=== PATIENT | female | born 1980 | race Caucasian/White ===

== ENCOUNTER 2018-06-18 16:05 | Emergency (ER) | payer BC ==
[~2018-06-18] VITALS: Ht 172.7 cm; Wt 131.8 kg
[2018-06-18 16:33] VITALS: Ht 172.7 cm; Wt 131.8 kg
[2018-06-18] MEDS ORDERED: KEFLEX500 MG PO (17:19)
[2018-06-18] MEDS ORDERED: EC-NAPROSYN500 MG PO (19:00)
[2018-06-18 19:59] VITALS: BP 132/85
== END 2018-06-18 20:02 | disposition home or self-care (01) ==
LOC: D.ER 16:05
DX: S01.81XA Laceration without foreign body of other part of head, initial encounter (principal); W18.30XA Fall on same level, unspecified, initial encounter; Y93.89 Activity, other specified; Y92.531 Health care provider office as the place of occurrence of the external cause; S80.01XA Contusion of right knee, initial encounter; M25.461 Effusion, right knee; K21.9 Gastro-esophageal reflux disease without esophagitis; K50.90 Crohn's disease, unspecified, without complications; K58.9 Irritable bowel syndrome, unspecified; E28.2 Polycystic ovarian syndrome

== ENCOUNTER 2018-08-02 11:28 | Inpatient (IN) | payer BC ==
[~2018-08-02] VITALS: Ht 172.7 cm; Wt 136.4 kg
--- NOTE | ~2018-08-02 | MORECARE ---
CASE MANAGEMENT DISCHARGE SUMMARY PATIENT: WILFREDO JARA UNIT: [id number] ADM DATE: 08/02/18 AGE: 37 : [birth year] SEX: F ROOM/BED: D.2770 AUTHOR: EZE ESTRELLA PHYSICIAN: REFERRING PHYSICIAN: PEDRO LUIS KAISER DO DATE OF SERVICE: 08/03/18 Discharge Plan Patient Name: WILFREDO JARA Facility: [facility]:[place] : 1980 Planned Disposition: Home Anticipated Discharge Date: 08/03/18 Discharge Date: Expected LOS: 1 Initial Reviewer: [email or web address] Initial Review Date: 08/03/2018 Generated: 08/03/18 11:07 am Comments DCP- Discharge Planning Updated by [email or web address]: Pablo Trejo on 08/03/18 9:[address] Patient Name: WILFREDO JARA Admission Status: ER Accout number: [id number] Admission Date: 08-02-2018 : 1980 Admission Diagnosis: Attending: Pedro Luis Kaiser Current LOS: 1 Anticipated DC Date: 08-03-2018 Planned Disposition: Home Primary Insurance: [email or web address] [facility] Discharge Planning Comments: CM MET WITH PT IN ROOM TO DISCUSS DISCHARGE PLANNING AND NEEDS. PT REPORTS LIVING AT HOME INDEPENDENTLY WITH HER SPOUSE AND EXTENDED FAMILY. PT HAS CANE AND NEBULIZER WITH NO MEDICAL EQUIPMENT PROVIDER PREFERENCE. PT HAS NO OUTSIDE SERVICES ASSISTING IN THE HOME. CM DISCUSSED AVAILABILITY OF HOME HEALTH, REHAB SERVICES AND MEDICAL EQUIPMENT. PT DENIES DISCHARGE NEEDS, REPORTS HER SPOUSE WILL PICK HER UP FOR DISCHARGE HOME. CUSTOM VAN CONVERTER NURSE NOTIFIED. Mental Health Case Manager: Pablo Trejo DCPIA - Discharge Planning Initial Assessment Updated by [email or web address]: Pablo Trejo on 08/03/18 10:04 am * Is the patient Alert and Oriented? Yes * How many steps to enter\exit or inside your home? * PCP DR. KAISER * Pharmacy [facility]. * Preadmission Environment Home with Family * ADLs Independent * Equipment Cane Nebulizer * Other Equipment NO MEDICAL EQUIPMENT PROVIDER PREFERENCE * List name and contact numbers for known caregivers / representatives who currently or will assist patient after discharge: PEGGY ESPINOON, MOTHER IN LAW, KATHARINA JARA, SPOUSE, * Verbal permission to speak to the caregivers and representatives has been obtained from the patient. Yes * Community resources currently utilized None * Please name any agencies selected above. NONE * Additional services required to return to the preadmission environment? No * Can the patient safely return to the preadmission environment? Yes * Has this patient been hospitalized within the prior 30 days at any hospital? No Last DP export: 08/03/18 8:59 Patient Name: WILFREDO JARA Page [id number] at 1007 All edits/amendments must be made on the electronic document DICTATION DATE: 08/03/18 1007 CENTER CUSTOMER SERVICE ASSOCIATE: QUEENIE 08/03/18 [facility] RPT#: [id number] DC DATE: STATUS: ADM IN [facility] [address] [place] [address] END OF REPORT
--- NOTE | ~2018-08-02 | MORECARE ---
CASE MANAGEMENT DISCHARGE SUMMARY PATIENT: WILFREDO JARA UNIT: [id number] ADM DATE: 08/02/18 AGE: 37 : 82 SEX: F ROOM/BED: D.2135 AUTHOR: EZE ESTRELLA PHYSICIAN: REFERRING PHYSICIAN: PEDRO LUIS KAISER DO DATE OF SERVICE: 08/03/18 Discharge Plan Patient Name: WILFREDO JARA Facility: [facility]:[place] : 1980 Planned Disposition: Home Anticipated Discharge Date: 08/03/18 Discharge Date: Expected LOS: 1 Initial Reviewer: [email or web address] Initial Review Date: 08/03/2018 Generated: 08/03/18 10:59 am Patient Name: WILFREDO JARA Page [id number] at 0959 All edits/amendments must be made on the electronic document DICTATION DATE: 08/03/18958 RUBBER PRESS OPERATOR: QUEENIE 08/03/18958 RPT#: [id number] DC DATE: STATUS: ADM IN [facility] [address] [place] [address] END OF REPORT
[~2018-08-02 11:28] MED LIST: EC-NAPROSYN500 MG PO; KEFLEX500 MG PO
[2018-08-02 12:16] LABS: HEMATOCRIT 35.9 % (36.0-48.0); HEMOGLOBIN 12.3 g/dL (12-16); LYMPHOCYTES 19.9 % (15-50); MCH 28.2 pg (26.0-34.0); MCHC 34.3 g/dL (31.0-37.0); MCV 82.3 fL (80.0-100.0); MEAN PLATELET VOLUME 9.8 fL (7.4-10.4); NEUTROPHILS 71.5 % (40-80); PLATELET COUNT 279 10x3/uL (130-400); RBC 4.36 10x6/uL (4.00-5.40); RDW 13.1 % (11.5-14.5); WBC 7.3 10x3/uL (4.8-10.8)
[2018-08-02 12:25] LABS: ALBUMIN 3.5 g/dL (3.4-5.0); ALKALINE PHOSPHATASE 95 U/L (46-116); ALT (SGPT) 15 U/L (10-68); AMYLASE - SERUM 24 U/L (25-115); BILIRUBIN - TOTAL 0.31 mg/dL (0.2-1.3); CALC OSMOLALITY 271 mosm/kg (275-300); CALCIUM 9.2 mg/dL (8.5-10.1); CARBON DIOXIDE 27.6 mmol/L (21.0-32.0); CHLORIDE - SERUM 102 mmol/L (98-107); CREATININE - SERUM 0.7 mg/dL (0.6-1.3); GLUCOSE 85 mg/dL (74-106); LIPASE 87 U/L (73-393); PROTEIN - SERUM 7.8 g/dL (6.4-8.2); SODIUM 137 mmol/L (136-145); UREA NITROGEN 10 mg/dL (7-18); eGFR NON AFRICAN AMERICAN > 90 mL/min (90-120)
[2018-08-02 13:42] LABS: APPEARANCE CLEAR (CLEAR); COLOR YELLOW (YELLOW)
[2018-08-02 13:43] LABS: BACTERIA MODERATE /hpf (NONE SEEN); BILIRUBIN NEGATIVE (NEGATIVE); EPITHELIAL CELLS 0-5 /hpf (0-5); GLUCOSE NEGATIVE (NEGATIVE); KETONE NEGATIVE (NEGATIVE); NITRITE NEGATIVE (NEGATIVE); PROTEIN NEGATIVE (NEGATIVE); UROBILINOGEN NORMAL (NORMAL)
[2018-08-02 13:45] LABS: MUCUS <1+ /lpf (NONE SEEN)
[2018-08-02 14:00] VITALS: BP 144/73
[2018-08-02 16:00] VITALS: BP 142/76
[2018-08-02 19:00] VITALS: BP 143/86
[2018-08-03 00:45] VITALS: BP 140/84
[2018-08-03 04:45] LABS: BASOPHILS 0.4 % (0-2); HEMATOCRIT 34.1 % (36.0-48.0); HEMOGLOBIN 11.3 g/dL (12-16); IMMATURE GRANULOCYTES 0.2 % (0-5); LYMPHOCYTES 22.9 % (15-50); MCH 27.8 pg (26.0-34.0); MCHC 33.1 g/dL (31.0-37.0); NEUTROPHILS 60.5 % (40-80); PLATELET COUNT 254 10x3/uL (130-400); RBC 4.06 10x6/uL (4.00-5.40); RDW 13.5 % (11.5-14.5); WBC 5.7 10x3/uL (4.8-10.8)
[2018-08-03 04:57] VITALS: BP 121/55
[2018-08-03 05:56] LABS: ALBUMIN 2.9 g/dL (3.4-5.0); ALKALINE PHOSPHATASE 85 U/L (46-116); ALT (SGPT) 17 U/L (10-68); BILIRUBIN - TOTAL 0.53 mg/dL (0.2-1.3); CALC OSMOLALITY 273 mosm/kg (275-300); CALCIUM 8.5 mg/dL (8.5-10.1); CARBON DIOXIDE 26.8 mmol/L (21.0-32.0); CHLORIDE - SERUM 104 mmol/L (98-107); CREATININE - SERUM 0.7 mg/dL (0.6-1.3); GLUCOSE 93 mg/dL (74-106); POTASSIUM - SERUM 3.9 mmol/L (3.5-5.1); PROTEIN - SERUM 6.8 g/dL (6.4-8.2); SODIUM 138 mmol/L (136-145); UREA NITROGEN 8 mg/dL (7-18); eGFR NON AFRICAN AMERICAN > 90 mL/min (90-120)
[2018-08-03] MEDS ORDERED: LEVAQUIN750 MG PO (07:02)
[2018-08-03] MEDS ORDERED: DILAUDID4 MG PO (07:02)
[2018-08-03] MEDS ORDERED: FLORAJEN3 CAPS460 MG PO (07:02)
[2018-08-03] MEDS ORDERED: FLAGYL500 MG PO (07:02)
[2018-08-03 08:40] VITALS: BP 137/82
[2018-08-03 09:29] VITALS: Ht 172.7 cm; Wt 136.4 kg
== END 2018-08-03 12:35 | disposition home or self-care (01) | DRG 392 ==
LOC: D.ER 11:28 → D.EDHOLD 17:16 → D.M2 17:16
PROVIDERS: Family Medicine
DX: K57.92 Diverticulitis of intestine, part unspecified, without perforation or abscess without bleeding (principal); N39.0 Urinary tract infection, site not specified; K50.90 Crohn's disease, unspecified, without complications; K21.9 Gastro-esophageal reflux disease without esophagitis

== ENCOUNTER 2018-11-12 15:51 | Inpatient (IN) | payer BC ==
[~2018-11-12] VITALS: Ht 172.7 cm; Wt 106.6 kg
[~2018-11-12 15:51] MED LIST changes: +DILAUDID4 MG PO; +FLAGYL500 MG PO; +FLORAJEN3 CAPS460 MG PO; +LEVAQUIN750 MG PO
--- NOTE | 2018-11-12 16:13 | NUR ---
RECEIVED TO ROOM VIA WHEELCHAIR AND WEARING A SURGICAL MASK.
[2018-11-12] MEDS ORDERED: SINGULAIR10 MG PO (16:25)
[2018-11-12 16:26] VITALS: BP 187/106; Ht 172.7 cm; Wt 106.6 kg
[2018-11-12] MEDS ORDERED: OMEPRAZOLE40 MG PO (16:26)
--- NOTE | 2018-11-12 16:45 | NUR ---
ATTEMPTED 22 GUAGE PIV WITHOUT SUCCESS TO L.FA. DISCUSSED WITH PRIMARY NURSE WILL HAVE SOMEONE ELSE TRY.
[2018-11-12 16:54] LABS: BASOPHILS 0.5 % (0-2); EOSINOPHILS 1.7 % (0-7); HEMATOCRIT 37.1 % (36.0-48.0); HEMOGLOBIN 12.3 g/dL (12-16); LYMPHOCYTES 18.3 % (15-50); MCH 27.5 pg (26.0-34.0); MCHC 33.2 g/dL (31.0-37.0); MCV 82.8 fL (80.0-100.0); MEAN PLATELET VOLUME 9.6 fL (7.4-10.4); MONOCYTES 9.4 % (2-11); NEUTROPHILS 70.1 % (40-80); PLATELET COUNT 270 10x3/uL (130-400); RBC 4.48 10x6/uL (4.00-5.40); RDW 13.9 % (11.5-14.5); WBC 5.9 10x3/uL (4.8-10.8)
--- NOTE | 2018-11-12 17:00 | NUR ---
URINE SENT TO LAB ORDERED. PATIENT IS ON HER MENSES AND WEARS A PAD SO THERE IS BLOOD IN URINE SAMPLE.
--- NOTE | 2018-11-12 17:05 | NUR ---
IV SITED TO RIGHT INNER FA X 3 STICKS. THERE IS A 22G.
[2018-11-12 17:21] LABS: ALBUMIN 3.3 g/dL (3.4-5.0); ALKALINE PHOSPHATASE 100 U/L (46-116); ALT (SGPT) 15 U/L (10-68); BILIRUBIN - TOTAL 0.28 mg/dL (0.2-1.3); CALC OSMOLALITY 279 mosm/kg (275-300); CALCIUM 8.2 mg/dL (8.5-10.1); CARBON DIOXIDE 27.6 mmol/L (21.0-32.0); CHLORIDE - SERUM 104 mmol/L (98-107); CREATININE - SERUM 0.7 mg/dL (0.6-1.3); GLUCOSE 92 mg/dL (74-106); POTASSIUM - SERUM 3.7 mmol/L (3.5-5.1); PROTEIN - SERUM 6.9 g/dL (6.4-8.2); SODIUM 141 mmol/L (136-145); UREA NITROGEN 9 mg/dL (7-18); eGFR NON AFRICAN AMERICAN > 90 mL/min (90-120)
[2018-11-12 18:38] LABS: APPEARANCE HAZY (CLEAR); BILIRUBIN NEGATIVE (NEGATIVE); COLOR YELLOW (YELLOW); GLUCOSE NEGATIVE (NEGATIVE); KETONE NEGATIVE (NEGATIVE); NITRITE NEGATIVE (NEGATIVE); PROTEIN NEGATIVE (NEGATIVE); UROBILINOGEN NORMAL (NORMAL)
[2018-11-12 18:48] LABS: RED CELLS - URINE 25-50 /hpf (0-5); WHITE CELLS - URINE OCC /hpf (0-5)
--- NOTE | 2018-11-12 19:20 | NUR ---
AWAKE AND ALERT IN BED DENEIES NEEDS AT THIS TIME BED IS LOW AND CALL LIGHT IS IN REACH. AUDIABLE WHEEZES HEARD. LUNGS ARE DEMINISHED WITH EPIROTORY WHEEZE. SKIN IS WARM AND DRYIV TO RT ARM IS RUNNING AT NS AT 75 NO REDNESS OR EDEMA NOTED
[2018-11-12 20:00] VITALS: BP 130/75
[2018-11-12 23:00] VITALS: BP 122/76
[2018-11-13] VITALS (7 sets, daily range): BP systolic 108–170; BP diastolic 65–78
--- NOTE | 2018-11-13 02:00 | NUR ---
PT COMPLAINT OF HEADACHE AND STATES SHE IS NOT ALLERGIC TO TYLENOL HARPREET CASON
--- NOTE | 2018-11-13 02:16 | NUR ---
I have reviewed this patient and I concur with the Shift Assessment completed by the Licensed Practical Nurse today this shift.
[2018-11-13 05:39] LABS: BASOPHILS 0 % (0-2); EOSINOPHILS 0 % (0-7); HEMATOCRIT 37.9 % (36.0-48.0); HEMOGLOBIN 12.7 g/dL (12-16); IMMATURE GRANULOCYTES 0.2 % (0-5); LYMPHOCYTES 9.4 % (15-50); MCH 27.5 pg (26.0-34.0); MCHC 33.5 g/dL (31.0-37.0); MCV 82.2 fL (80.0-100.0); MEAN PLATELET VOLUME 9.5 fL (7.4-10.4); MONOCYTES 1.3 % (2-11); NEUTROPHILS 89.1 % (40-80); PLATELET COUNT 292 10x3/uL (130-400); RBC 4.61 10x6/uL (4.00-5.40); RDW 13.9 % (11.5-14.5); WBC 5.5 10x3/uL (4.8-10.8)
[2018-11-13 05:56] LABS: CALC OSMOLALITY 278 mosm/kg (275-300); CALCIUM 8.9 mg/dL (8.5-10.1); CARBON DIOXIDE 24.4 mmol/L (21.0-32.0); CHLORIDE - SERUM 105 mmol/L (98-107); CREATININE - SERUM 0.7 mg/dL (0.6-1.3); POTASSIUM - SERUM 4.1 mmol/L (3.5-5.1); SODIUM 140 mmol/L (136-145); UREA NITROGEN 8 mg/dL (7-18); eGFR NON AFRICAN AMERICAN > 90 mL/min (90-120)
[2018-11-13 06:05] LABS: GLUCOSE 141 mg/dL (74-106)
--- NOTE | 2018-11-13 17:08 | NUR ---
DECLINED SCDS. STATES SHE WILL GET UP AND WALK MORE.
--- NOTE | 2018-11-13 18:05 | NUR ---
AGREE WITH DYE WORKER ASSESSMENT
--- NOTE | 2018-11-13 19:54 | NUR ---
EVENING ROUNDS COMPLETED. REPORT RECEIVED. PT SITTING UP IN BED WITH EYES OPEN, RECEIVING BREATHING TREATMENT. NO S/S OF DISTRESS NOTED. BED IN LOW POSITION. NO S/S OF DISTRESS NOTED. INTRODUCED SELF TO PT. PT DENIES FURTHER NEEDS AT THIS TIME. CALL LIGHT IN REACH. WILL CTM.
--- NOTE | 2018-11-14 00:37 | NUR ---
I have reviewed this patient and I concur with the Shift Assessment completed by the Licensed Practical Nurse today this shift.
[2018-11-14 03:55] VITALS: BP 142/90
--- NOTE | 2018-11-14 04:34 | NUR ---
PT LYING IN BED WITH EYES CLOSED, RR EVEN AND UNLABORED. NO S/S OF DISTRESS NOTED. BED IN LOW POSITION. CALL LIGHT IN REACH. WILL CTM.
[2018-11-14 06:27] LABS: CALC OSMOLALITY 281 mosm/kg (275-300); CALCIUM 8.6 mg/dL (8.5-10.1); CARBON DIOXIDE 22.9 mmol/L (21.0-32.0); CHLORIDE - SERUM 106 mmol/L (98-107); CREATININE - SERUM 0.8 mg/dL (0.6-1.3); GLUCOSE 131 mg/dL (74-106); MAGNESIUM - SERUM 1.9 mg/dL (1.8-2.4); POTASSIUM - SERUM 4.2 mmol/L (3.5-5.1); SODIUM 141 mmol/L (136-145); UREA NITROGEN 10 mg/dL (7-18); eGFR NON AFRICAN AMERICAN 85 mL/min (90-120)
[2018-11-14 06:28] LABS: BASOPHILS 0 % (0-2); EOSINOPHILS 0 % (0-7); HEMATOCRIT 37.2 % (36.0-48.0); HEMOGLOBIN 12.2 g/dL (12-16); IMMATURE GRANULOCYTES 0.4 % (0-5); LYMPHOCYTES 6.5 % (15-50); MCH 27.3 pg (26.0-34.0); MCHC 32.8 g/dL (31.0-37.0); MCV 83.2 fL (80.0-100.0); MEAN PLATELET VOLUME 9.7 fL (7.4-10.4); MONOCYTES 4.6 % (2-11); NEUTROPHILS 88.5 % (40-80); PLATELET COUNT 328 10x3/uL (130-400); RBC 4.47 10x6/uL (4.00-5.40); RDW 14.2 % (11.5-14.5)
[2018-11-14 06:30] LABS: WBC 9.3 10x3/uL (4.8-10.8)
--- NOTE | 2018-11-14 07:30 | NUR ---
A/A/OX4. DENIES ANY PAIN DISCOMFORT OR SOB. RESP EVEN AND UNLABORED. ASSESSMENT COMPLETED. BED IN LOW POSITION AND LOCKED. SIDERAILS UP X 2 AND CALL LIGHT IN REACH. WILL CONTINUE POC,
[2018-11-14 08:05] VITALS: BP 148/71
[2018-11-14 12:26] VITALS: BP 132/75
[2018-11-14 15:49] VITALS: BP 143/87
[2018-11-14] MEDS ORDERED: PREDNISONE10 MG PO (16:09)
[2018-11-14] MEDS ORDERED: OMNICEF300 MG PO (16:09)
--- NOTE | 2018-11-14 17:23 | NUR ---
AGREE WITH OR MANAGER ASSESSMENT
--- NOTE | 2018-11-14 18:02 | NUR ---
DISCHARGE INSTRUCTIONS REVIEWED WITH PT AND VERBALIZED UNDERSTANDING WITH NO QUESTIONS. IV DC'D WITH TIP INTACT. LEFT FLOOR VIA W/C WITH ALL PERSONAL BELONGINGS AND LEFT FACILITY VIA PRIVATE VEHICLE WITH A FRIEND.
--- NOTE | 2018-11-15 11:45 | MORECARE ---
CASE MANAGEMENT DISCHARGE SUMMARY PATIENT: WILFREDO JARA UNIT: [id number] ADM DATE: 11/12/18 AGE: 38 : 82 SEX: F ROOM/BED: D.2134 AUTHOR: EZE ESTRELLA PHYSICIAN: REFERRING PHYSICIAN: YURY BRANNON DO DATE OF SERVICE: 11/15/18 Discharge Plan Patient Name: WILFREDO JARA Facility: [facility]:[place] : 1980 Planned Disposition: Home Anticipated Discharge Date: 11/14/18 Discharge Date: 11/14/2018 Expected LOS: 2 Initial Reviewer: [email or web address] Initial Review Date: 11/15/2018 Generated: 11/15/18 12:44 pm Patient Name: WILFREDO JARA Page [id number] at 1145 All edits/amendments must be made on the electronic document DICTATION DATE: 11/15/18 1144 PASTE MIXING SUPERVISOR: QUEENIE 11/15/18 1144 RPT#: [id number] DC DATE:11/14/18 STATUS: DIS IN [facility] [address] [place] [address] END OF REPORT
== END 2018-11-14 18:06 | disposition home or self-care (01) | DRG 202 ==
LOC: D.M2 15:51
PROVIDERS: Family Medicine; ADMIT Family Medicine; ATTEND Family Medicine
DX: J45.901 Unspecified asthma with (acute) exacerbation (principal); J18.9 Pneumonia, unspecified organism; Z68.41 Body mass index [BMI] 40.0-44.9, adult; K21.9 Gastro-esophageal reflux disease without esophagitis; E66.01 Morbid (severe) obesity due to excess calories

== ENCOUNTER → 2019-03-02 12:24 | Outpatient (CLI) | payer BC ==
[2018-11-12 16:26] VITALS: BMI 44.9
[~2019-03-02 12:24] MED LIST changes: +OMEPRAZOLE40 MG PO; +OMNICEF300 MG PO; +PREDNISONE10 MG PO; +SINGULAIR10 MG PO
== END | disposition home or self-care (01) ==
LOC: D.RT 12:24
PROVIDERS: ATTEND Internal Medicine Pulmonary Disease
DX: J45.909 Unspecified asthma, uncomplicated (principal)

== ENCOUNTER → 2019-10-28 13:18 | Outpatient (CLI) | payer BC ==
[2018-11-12 16:26] VITALS: BMI 44.9
== END | disposition home or self-care (01) ==
LOC: D.US 13:18
PROVIDERS: ATTEND Family Medicine
DX: I73.9 Peripheral vascular disease, unspecified (principal)

== ENCOUNTER → 2020-02-03 09:51 | Outpatient (CLI) | payer BC ==
[2018-11-12 16:26] VITALS: BMI 44.9
== END | disposition home or self-care (01) ==
LOC: D.MRI 09:51
PROVIDERS: ATTEND Clinical Nurse Specialist Family Health
DX: M25.511 Pain in right shoulder (principal)

== ENCOUNTER 2020-05-08 10:59 | Emergency (ER) | payer BC ==
[~2020-05-08] VITALS: Ht 172.7 cm; Wt 136.4 kg
[2020-05-08 11:28] VITALS: Ht 172.7 cm; Wt 136.4 kg
[2020-05-08] MEDS ORDERED: PROAIR HFA8.5 G1 INH (11:39)
[2020-05-08] MEDS ORDERED: ZPAK PO (11:39)
[2020-05-08] MEDS ORDERED: PHENERGAN6.25 MG/5 PO (11:39)
[2020-05-08] MEDS ORDERED: PREDNISONE20 MG PO ×2 (11:40→13:01)
[2020-05-08] MEDS ORDERED: LISINOPRIL10 MG PO (11:40)
[2020-05-08 12:14] LABS: CALC OSMOLALITY 271 mosm/kg (275-300); CALCIUM 9.2 mg/dL (8.5-10.1); CARBON DIOXIDE 30.4 mmol/L (21.0-32.0); CHLORIDE - SERUM 103 mmol/L (98-107); CREATININE - SERUM 0.8 mg/dL (0.6-1.3); POTASSIUM - SERUM 3.3 mmol/L (3.5-5.1); SODIUM 137 mmol/L (136-145); UREA NITROGEN 10 mg/dL (7-18); eGFR NON AFRICAN AMERICAN 85 mL/min (90-120)
[2020-05-08 12:16] LABS: GLUCOSE 82 mg/dL (74-106)
[2020-05-08 12:20] LABS: BASOPHILS 0.2 % (0-2); EOSINOPHILS 0.9 % (0-7); HEMATOCRIT 40.5 % (36.0-48.0); HEMOGLOBIN 13.2 g/dL (12-16); IMMATURE GRANULOCYTES 0.2 % (0-5); LYMPHOCYTES 13.6 % (15-50); MCH 28.1 pg (26.0-34.0); MCHC 32.6 g/dL (31.0-37.0); MCV 86.4 fL (80.0-100.0); MEAN PLATELET VOLUME 9.7 fL (7.4-10.4); MONOCYTES 14.1 % (2-11); PLATELET COUNT 280 10x3/uL (130-400); RBC 4.69 10x6/uL (4.00-5.40); RDW 13.7 % (11.5-14.5); WBC 5.5 10x3/uL (4.8-10.8)
[2020-05-08 12:23] LABS: INR 1.01 (0.85-1.17); PROTIME 13.2 SECONDS (11.6-15.0)
[2020-05-08 12:32] LABS: ALBUMIN 3.6 g/dL (3.4-5.0); ALKALINE PHOSPHATASE 104 U/L (30-120); ALT (SGPT) 19 U/L (10-68); BILIRUBIN - TOTAL 0.29 mg/dL (0.2-1.3); CKMB 0.2 U/L (0.0-3.6); CREATINE KINASE 35 UL (21-215); PRO BNP 104 pg/mL (0-125); PROTEIN - SERUM 7.9 g/dL (6.4-8.2)
[2020-05-08 12:37] LABS: TROPONIN-I < 0.017 ng/mL (0.000-0.060)
[2020-05-08] MEDS ORDERED: FLUTICASONE PRO16 GM NASAL (13:01)
[2020-05-08] MEDS ORDERED: AUGMENTIN 875-11 TAB PO (13:01)
[2020-05-08 13:17] VITALS: BP 105/57
== END 2020-05-08 13:18 | disposition home or self-care (01) ==
LOC: D.ER 10:59
PROVIDERS: Family Medicine
DX: J01.90 Acute sinusitis, unspecified (principal); J45.909 Unspecified asthma, uncomplicated; K21.9 Gastro-esophageal reflux disease without esophagitis; R06.02 Shortness of breath; R05 Cough; H92.03 Otalgia, bilateral; R51 Headache

== ENCOUNTER 2020-11-12 11:58 | Emergency (ER) | payer BC ==
[~2020-11-12] VITALS: Ht 172.7 cm; Wt 136.4 kg
[~2020-11-12 11:58] MED LIST changes: +AUGMENTIN 875-11 TAB PO; +FLUTICASONE PRO16 GM NASAL; +LISINOPRIL10 MG PO; +PHENERGAN6.25 MG/5 PO; +PREDNISONE20 MG PO; +PROAIR HFA8.5 G1 INH; +ZPAK PO
[2020-11-12 12:02] VITALS: Ht 172.7 cm; Wt 136.4 kg
[2020-11-12 12:31] LABS: BASOPHILS 0.3 % (0-2); EOSINOPHILS 1.2 % (0-7); HEMATOCRIT 36.1 % (36.0-48.0); HEMOGLOBIN 12.1 g/dL (12-16); IMMATURE GRANULOCYTES 0.1 % (0-5); LYMPHOCYTE ABS# 1.75 10x3/uL (1.18-3.74); LYMPHOCYTES 25.4 % (15-50); MCH 27.5 pg (26.0-34.0); MCHC 33.5 g/dL (31.0-37.0); MEAN PLATELET VOLUME 9.4 fL (7.4-10.4); MONOCYTES 8.3 % (2-11); NEUTROPHIL ABS# 4.45 10x3/uL (1.56-6.13); NEUTROPHILS 64.7 % (40-80); PLATELET COUNT 307 10x3/uL (130-400); RDW 13.8 % (11.5-14.5); WBC 6.9 10x3/uL (4.8-10.8)
[2020-11-12 12:40] LABS: CALC OSMOLALITY 268 mosm/kg (275-300); CALCIUM 9.4 mg/dL (8.5-10.1); CHLORIDE - SERUM 99 mmol/L (98-107); CREATININE - SERUM 0.8 mg/dL (0.6-1.3); GLUCOSE 95 mg/dL (74-106); POTASSIUM - SERUM 3.9 mmol/L (3.5-5.1); SODIUM 135 mmol/L (136-145); UREA NITROGEN 11 mg/dL (7-18); eGFR NON AFRICAN AMERICAN 85 mL/min (90-120)
[2020-11-12 12:49] LABS: ALBUMIN 3.8 g/dL (3.4-5.0); ALKALINE PHOSPHATASE 106 U/L (30-120); ALT (SGPT) 21 U/L (10-68); AMYLASE - SERUM 23 U/L (25-115); C-REACTIVE PROTEIN 2.8 mg/dL (0.0-0.9); LIPASE 81 U/L (73-393); PROTEIN - SERUM 7.7 g/dL (6.4-8.2); TROPONIN-I < 0.017 ng/mL (0.000-0.060)
[2020-11-12 13:00] LABS: HCG URINE NEGATIVE (NEGATIVE)
[2020-11-12 13:21] LABS: BILIRUBIN NEGATIVE (NEGATIVE); KETONE NEGATIVE (NEGATIVE); NITRITE NEGATIVE (NEGATIVE); UROBILINOGEN NORMAL mg/dL (< 2)
[2020-11-12] MEDS ORDERED: LEVOFLOXACIN500 MG PO (15:18)
[2020-11-12] MEDS ORDERED: PERCOCET 5-3251 TAB PO (15:18)
[2020-11-12] MEDS ORDERED: FLAGYL500 MG PO (15:18)
[2020-11-12 15:32] VITALS: BP 109/85
== END 2020-11-12 15:33 | disposition home or self-care (01) ==
LOC: D.ER 11:58
PROVIDERS: Family Medicine
DX: K57.92 Diverticulitis of intestine, part unspecified, without perforation or abscess without bleeding (principal); J45.909 Unspecified asthma, uncomplicated; K21.9 Gastro-esophageal reflux disease without esophagitis; R10.32 Left lower quadrant pain